=== PATIENT | female | born 1995 | race Caucasian/White ===

== ENCOUNTER → 2024-11-17 10:23 | Outpatient (BNVA) | payer OTHER, SELFPAY | PROVIDERS: Visit Provider Physician Assistant Medical | DX: S00.83XA Contusion of other part of head, initial encounter (principal); W20.8XXA Other cause of strike by thrown, projected or falling object, initial encounter | CPT/HCPCS: 99203 ==

== ENCOUNTER → 2024-11-19 07:51 | Outpatient (BNVA) | payer OTHER, SELFPAY | PROVIDERS: Visit Provider Physician Assistant Medical | DX: S00.83XA Contusion of other part of head, initial encounter (principal); W20.8XXA Other cause of strike by thrown, projected or falling object, initial encounter; R51.9 Headache, unspecified; M54.2 Cervicalgia | CPT/HCPCS: 99213 ==

== ENCOUNTER → 2024-11-24 08:13 | Outpatient (BNVA) | payer OTHER, SELFPAY | PROVIDERS: Visit Provider Physician Assistant Medical | DX: S00.83XA Contusion of other part of head, initial encounter (principal); W20.8XXA Other cause of strike by thrown, projected or falling object, initial encounter; R51.9 Headache, unspecified; M54.2 Cervicalgia | CPT/HCPCS: 99213 ==

== ENCOUNTER → 2024-11-27 13:30 | Outpatient (BNVA) | payer OTHER, SELFPAY | PROVIDERS: Visit Provider Physician Assistant Medical | DX: S00.83XA Contusion of other part of head, initial encounter (principal); W22.09XA Striking against other stationary object, initial encounter | CPT/HCPCS: 99213 ==

== ENCOUNTER → 2024-12-01 12:52 | Outpatient (BNVA) | payer OTHER, SELFPAY | PROVIDERS: Visit Provider Physician Assistant Medical | DX: S00.83XA Contusion of other part of head, initial encounter (principal); W20.8XXA Other cause of strike by thrown, projected or falling object, initial encounter | CPT/HCPCS: 99213 ==

== ENCOUNTER → 2024-12-10 11:06 | Outpatient (BNVA) | payer OTHER, SELFPAY | PROVIDERS: Visit Provider Physician Assistant Medical | DX: S00.83XD Contusion of other part of head, subsequent encounter (principal); W20.8XXD Other cause of strike by thrown, projected or falling object, subsequent encounter; R51.9 Headache, unspecified; M54.2 Cervicalgia | CPT/HCPCS: 99213 ==

== ENCOUNTER → 2024-12-22 13:08 | Outpatient (BNVA) | payer OTHER, SELFPAY | PROVIDERS: Visit Provider Physician Assistant Medical | DX: S06.0X0D Concussion without loss of consciousness, subsequent encounter (principal); W22.8XXD Striking against or struck by other objects, subsequent encounter; R51.9 Headache, unspecified; M54.2 Cervicalgia | CPT/HCPCS: 99213 ==

== ENCOUNTER → 2025-01-05 11:25 | Outpatient (BNVA) | payer OTHER, SELFPAY | PROVIDERS: Visit Provider Physician Assistant Medical | DX: S00.83XD Contusion of other part of head, subsequent encounter (principal); W20.8XXD Other cause of strike by thrown, projected or falling object, subsequent encounter; R51.9 Headache, unspecified; M54.2 Cervicalgia | CPT/HCPCS: 99213 ==

== ENCOUNTER 2025-01-06 07:48 | Outpatient (RCR) | payer OTHER, SELFPAY ==
--- NOTE | 2024-12-09 11:31 | MHC.OT.EP ---
[address] [phone] Occupational Therapy Plan of Care Patient Name: Rianna Luna Date of Evaluation: 12/09/24 Diagnosis: Post concussion syndrome; headaches Pain Location: Headaches daily around 11:00 am; throbbing/aching Were previously cervicogenic in nature, this is improving Headaches are now localized to frontal lobe/temples Pain Score: 8 Pain Scale Used: Numeric (0 - 10) Aggravating Factors: Bright lights, forward flexion Alleviating Factors: Sumatriptan (up to 2 a day at onset of headache) Laying in a dark room Assessment: Rianna is a 29-year-old female referred to OT with persistent post-concussion symptoms following work related injury. She reports functional independence with basic ADLs but moderate difficulty managing household tasks, multitasking, and time management?particularly in morning routines with her children. Cognitive symptoms include forgetfulness, impaired focus, and ongoing headaches interfering with function. Recommending skilled OT for cognitive therapy, energy management, environmental modifications, and support return to prior functional level. Frequency and Duration: The patient will be seen 2x/wk for 6 weeks Short Term Goals: Decrease headache frequency/intensity by 50% Pt will be educated in and trial sleep hygiene strategies Trial EFT and breathing techniques for stress management Demo improved executive function by independently organizing and completing a 2-step household task Prison Goals: IND with knowledge of BATES triggers and reduction strategies Improved QOL as evidence by [place] score <20 Independently utilize 2 or more regulation strategies to manage mood and reduce overwhelm Tolerate 4-6 hour work days using compensatory strategies with minimal symptom exacerbation Treatment Plan: Therapeutic Exercise Therapeutic Activity Home Exercise Program Neuro Re-ed Patient Education Soft Tissue Mobilization Other (see comments) Cognitive therapy, stress management, headache management, sleep hygiene Electronically Signed By: Amber Chino MS OTR/L Please Sign and return to therapist. Thank you once again for your referral.
--- NOTE | 2025-03-03 09:18 | MHC.OT.DC ---
[address] [phone] F: [phone] Occupational Therapy Discharge Note Patient Name: Rianna Luna Provider: Alva Sparrow Diagnosis: Post concussion syndrome; headaches Date of Evaluation: 12/09/24 Date of Discharge: Last seen 01/06/25 Treatments to Date: 5 Discharge Status: Recommend MD Follow-up Visit Non-compliance Discharge Summary: 01/06 Pt had follow up with Alva Sparrow PA-C yesterday. She missed appointments last week due to having a sinus infection. Pt reports she feels like she took several steps backwards post illness with energy levels, although her brain fog is improving slightly. Today she was able to sustain attention for cognitive tasks with some background noise. Plan to trial 'normal' lighting tomorrow with continued dual tasking/sustained attention work. 03/03 - Pt last seen for OT tx on 01/06/25. She has not followed up with future OT appointments. At this time, pt is being discharged from OT services. Thank you for this referral. Electronically Signed By: Amber Chino MS OTR/L Reviewed/agree with student documentation: Therapist: Please Sign and return to therapist, thank you for your referral.
== END 2025-03-03 09:19 | disposition home or self-care (01) ==
LOC: HO.OTS 07:48
PROVIDERS: Visit Provider Physician Assistant Medical
DX: M54.2 Cervicalgia (principal); R51.9 Headache, unspecified; S06.0XAD Concussion with loss of consciousness status unknown, subsequent encounter
CPT/HCPCS: 97112; 97165; 97530

== ENCOUNTER → 2025-01-19 13:09 | Outpatient (BNVA) | payer OTHER, SELFPAY | PROVIDERS: Visit Provider Physician Assistant Medical | DX: S00.83XD Contusion of other part of head, subsequent encounter (principal); W20.8XXD Other cause of strike by thrown, projected or falling object, subsequent encounter; R51.9 Headache, unspecified; M54.2 Cervicalgia | CPT/HCPCS: 99213 ==

== ENCOUNTER → 2025-02-02 11:16 | Outpatient (BNVA) | payer OTHER, SELFPAY | PROVIDERS: Visit Provider Physician Assistant Medical | DX: S00.83XD Contusion of other part of head, subsequent encounter (principal); S06.0X0D Concussion without loss of consciousness, subsequent encounter; W20.8XXD Other cause of strike by thrown, projected or falling object, subsequent encounter; M54.2 Cervicalgia; R51.9 Headache, unspecified | CPT/HCPCS: 99213 ==

== ENCOUNTER → 2025-03-02 10:57 | Outpatient (BNVA) | payer OTHER, SELFPAY | PROVIDERS: Visit Provider Physician Assistant Medical | DX: S06.0X0D Concussion without loss of consciousness, subsequent encounter (principal); W20.8XXD Other cause of strike by thrown, projected or falling object, subsequent encounter; M54.2 Cervicalgia; R51.9 Headache, unspecified | CPT/HCPCS: 99213 ==